=== PATIENT | male | born 1990 | race Caucasian/White ===

== ENCOUNTER 2024-06-20 21:03 | Emergency (ER) | payer MEDICAID ==
[~2024-06-20] VITALS: Ht 180.3 cm; Wt 174.0 kg
[2024-06-20 21:24] VITALS: BP 133/76; PULSE 78; RESP 16; TEMP 98; O2SAT 96
[2024-06-21] MEDS ORDERED: HYDR30CR79 TOP (05:37)
[2024-06-21] MEDS ORDERED: HYDR-3965 PO (05:37)
== END 2024-06-21 03:18 | disposition left against medical advice (07) ==
LOC: ER 21:04
DX: K64.5 Perianal venous thrombosis (principal); K62.89 Other specified diseases of anus and rectum; Z53.21 Procedure and treatment not carried out due to patient leaving prior to being seen by health care provider

== ENCOUNTER 2024-06-21 02:10 | Emergency (ER) | payer OTHER, MEDICAID ==
[~2024-06-21] VITALS: Ht 180.3 cm; Wt 79.0 kg
[2024-06-21] MEDS: acetaminophen 325mg tablet PO ONE (04:20)
[2024-06-21] MEDS: ketorolac trometh 15mg/ml vial 15 MG/ML ML IM ONE (04:21)
[2024-06-21] MEDS: LIDOcaine/PRILOcaine 5gm cream TP ONE (04:21)
[2024-06-21] MEDS ORDERED: HYDR-3965 PO (05:37)
[2024-06-21] MEDS ORDERED: HYDR30CR79 TOP (05:37)
[2024-06-21 06:03] VITALS: BP 123/83; PULSE 60; RESP 18; TEMP 98.6; O2SAT 99
== END 2024-06-21 06:06 | disposition home or self-care (01) ==
LOC: ER 02:11
DX: K64.5 Perianal venous thrombosis (principal); Z88.0 Allergy status to penicillin
CPT/HCPCS: 46083; 96372; 99283; 99284; A6449; J1885

== ENCOUNTER 2024-11-04 02:33 | Emergency (ER) | payer MEDICAID, OTHER ==
[~2024-11-04] VITALS: Ht 177.8 cm; Wt 79.9 kg
[~2024-11-04 02:33] MED LIST: HYDR30CR79 TOP
[2024-11-04 02:46] VITALS: TEMP 97.3
--- NOTE | 2024-11-04 03:57 | Physician Documentation ---
History of Present Illness ~ General Chief Complaint: Medication Request Stated Complaint: VACCINATION Time Seen by MD: 03:55 OK to notify your PCP?: Yes Primary Medical Doctor: [facility] Source: patient, RN/, RN notes reviewed, old records Mode of Arrival: POV Exam Limitations: no limitations History of Present Illness Initial Comments 34-year-old male presents with requests to begin the rabies vaccination series. Patient reports his outdoor cat unexpectedly on 10/23/24 from an unknown illness. A couple of days prior the cat was apparently "crying out a lot." Then the day prior, the cat became "limp" and "paralyzed," and wouldn't drink any w ater. The day the cat , the patient lied down with the cat against his bare chest, trying to keep it warm. At some point the cat's saliva got into his mouth. He is now concerned his cat may have of rabies. Patient called his primary care physician's office who recommend he visit the ER for administration of rabies vaccination series. Patient states he was told the cat had been vaccinated as a kitten, prior to taking it in. Patient denies any symptoms such as headache, fever, neck pain, back pain, nausea, vomiting, or shortness of breath. Medication Reconciliation Allergies: Coded Allergies: ampicillin (Verified Allergy, Unknown, 11/04/24) Uncoded Allergies: PENICILLIN (Allergy, Unknown, 06/20/24) Scheduled Hydrocortisone (Anusol-Hc), 1 APPLIC TOP Q8H Past Medical History Past Medical History: No Pertinent History Past Surgical History: no surgical history Drug Use: none Lives In: Home Review of Systems All Other Systems at this time: Reviewed and Negative ROS As stated above in the HPI, otherwise all systems are reviewed and negative. Physical Exam Physical Exam Vital Signs: RN Vital Signs have been reviewed: Yes, Temperature: 97.3, Source: Temporal, Heart Rate: 61, Respiratory Rate: 18, BP: 117/64, Pulse Oximetry: 98, Weight: 79.900 Oxygen Flow Rate: 0 Pulse Oximetry Reflects: adequate oxygenation Physical Exam General: The patient is well developed, well nourished, nontoxic appearing and is in no acute distress. Skin: University, warm and dry with no rashes. HEENT: Head was normocephalic and atraumatic. Chest: Clear to auscultation bilaterally without wheezes, rales or rhonchi. No accessory muscle use. No dullness to percussion. Heart: Rate regular and rhythmic. S1, S2. No murmurs. Palpation of the chest wall was normal. No rubs or thrills. Extremities: No cyanosis, clubbing or edema. The patient moves all extremities. Pulses were equal and symmetric. Neurologic: Motor and sensation grossly intact. Cranial nerves II-XII grossly intact. A & O x4. Psychologic: Normal mood and affect. No agitation. Progress Progress Note 0410: Patient is very insistent about starting the rabies vaccination series, despite low risks. Will order. Results/Orders Reviewed/noted all lab results: Yes Results/Orders Completed Orders - TALAT DUKE MD Rabies Vaccine (Pcec)/Pf (Rabavert Rabie (11/04/24 04:10) Medications Received in ER Medications (Trade) Dose Ordered Sig/Rosmery Route PRN Reason Start Time Stop Time Status Last Admin Dose Admin (Rabavert Rabies Vaccine kit) 2.5 unit ONCE ONCE IMVAC 11/04/24 04:10 11/04/24 04:14 DC 11/04/24 04:33 2.5 UNIT Vital Signs 11/04/24 11/04/24 02:46 05:00 Temp 97.3 Pulse 61 61 Resp 18 18 B/P (MAP) 117/64 117/64 Pulse Ox 98 98 O2 Flow Rate 0 Re-Evaluation Re-Evaluation : Re-Evaluation: Improved, Unchanged Progress Patient was seen and examined. Patient was given reassurance. Patient was sent over by his primary for rabies vaccine. Patient receive his 1st series of vaccination. There was no open wound so no immunoglobulins were given at this time. Patient is also 10 days post exposure to mucous membranes. Patient was then given discharge instructions and encouraged to return if he has any other concerns. Departure Time of Disposition: 04:41 Disposition: 01 HOME / SELF CARE / HOMELESS Impression: Primary Impression: Need for rabies vaccination Condition: Stable Discharge Instructions: Rabies Additional Instructions: Return to the ER on 11/07, 11/11, and 11/18 for repeat administration of the rabies vaccine. Return sooner for any other concerns. Education Educated: Patient Educated regarding: diagnosis, treatment, need for follow up Signature Scribe Signature: Scribed for Talat Duke MD by Rciardo Sutton . 11/04/24 04:32 Attestation: The note accurately reflects work and decisions made by me.Talat Duke MD 11/04/24 03:57 TALAT DUKE MD November 04, 2024 03:57 RICARDO REED November 04, 2024 04:41
[2024-11-04] MEDS: rabies vaccine (PCEC)/PF 2.5 unit kit IMVAC ONE (04:33)
[2024-11-04 05:00] VITALS: BP 117/64; PULSE 61; RESP 18; O2SAT 98
== END 2024-11-04 05:02 | disposition home or self-care (01) ==
LOC: ER 02:34
DX: Z23 Encounter for immunization (principal); Z88.1 Allergy status to other antibiotic agents; Z79.899 Other long term (current) drug therapy
CPT/HCPCS: 90471; 90675; 99283

== ENCOUNTER 2024-11-08 22:57 | Emergency (ER) | payer MEDICAID ==
[~2024-11-08] VITALS: Ht 180.3 cm; Wt 78.5 kg
[2024-11-08 23:05] VITALS: BP 120/71; PULSE 61; RESP 15; O2SAT 98
--- NOTE | 2024-11-09 00:06 | Physician Documentation ---
History of Present Illness General Chief Complaint: See Chief Complaint Stated Complaint: RABIE SHOT,CAT FLUID EXPOSURE Time Seen by MD: 00:10 Primary Medical Doctor: [facility] History of Present Illness Initial Comments This is a 34-year-old male who presents requesting 2nd shot of rabies prophylaxis, patient reports he was exposed to a cat that had of symptoms that was suspicious for rabies, while animal control has not had a chance to test the cat they did advise the patient that he should receive rabies prophylaxis. Patient reports that he was receive the 1st dose in the series and returns for the 2nd. Patient reports that he feels otherwise well and reports no acute symptoms or concerns. Medication Reconciliation Allergies: Coded Allergies: ampicillin (Verified Allergy, Unknown, 11/04/24) Uncoded Allergies: PENICILLIN (Allergy, Unknown, 06/20/24) Scheduled Hydrocortisone (Anusol-Hc), 1 APPLIC TOP Q8H Past Medical History Past Medical History: No Pertinent History Past Surgical History: no surgical history Drug Use: none Lives In: Home Review of Systems ROS As stated above in the HPI, otherwise all systems are reviewed and negative. Physical Exam Physical Exam Vital Signs: Temperature: 97.8, Source: Temporal, Heart Rate: 61, Respiratory Rate: 15, BP: 120/71, Pulse Oximetry: 98, Weight: 78.500 Physical Exam VITALS: Reviewed and as above. GENERAL: Alert, nontoxic appearing, no apparent distress. RESPIRATORY: No increased work of breathing, no respiratory distress, speaking in full clear sentences Progress Results/Orders Results/Orders Completed Orders - MATHEUS MARTELL Rabies Vaccine (Pcec)/Pf (Rabavert Rabie (11/09/24 00:20) Medications Received in ER Medications (Trade) Dose Ordered Sig/Rosmery Route PRN Reason Start Time Stop Time Status Last Admin Dose Admin (Rabavert Rabies Vaccine kit) 2.5 unit ONCE ONCE IMVAC 11/09/24 00:20 11/09/24 00:21 DC 11/09/24 00:43 2.5 UNIT Vital Signs 11/08/24 11/09/24 23:05 00:51 Temp 97.8 97.8 Pulse 61 Resp 15 B/P (MAP) 120/71 Pulse Ox 98 Medical Decision Making Findings This 34 year male presented requesting 2nd dose of rabies vaccine as part of prophylaxis series after exposure to a cat that had of suspicious symptoms, reviewed previous records indicating patient had received his 1st dose and was scheduled to return yesterday for this 2nd vaccine dose. Patient administered 2nd dose vaccine. Patient reported no other acute symptoms or concerns and is appropriate for outpatient follow up. Patient provided return to care precautions including returning for the next dose of vaccine. Departure Disposition: 01 HOME / SELF CARE / HOMELESS Impression: Primary Impression: Need for rabies vaccination Condition: Improved Discharge Instructions: Rabies, Rabies Vaccine suspension for injection Additional Instructions: Follow up on 11/11 and 11/18 for repeat administration of the rabies vaccine. Please follow up with your primary care provider in the next few days. Please return to the emergency department for any new or worsening concerning symptoms. Referrals: NO PRIMARY CARE PROVIDER (PCP) Education Educated: Patient Educated regarding: diagnosis, treatment, prognosis, need for follow up Signature Scribe Signature: No scribe Attestation: The note accurately reflects work and decisions made by me.LYNDA Wolfe 11/09/24 01:00 MATHEUS MARTELL November 09, 2024 00:06
[2024-11-09] MEDS: rabies vaccine (PCEC)/PF 2.5 unit kit IMVAC ONE (00:43)
[2024-11-09 00:51] VITALS: TEMP 97.8
== END 2024-11-09 00:51 | disposition home or self-care (01) ==
LOC: ER 22:58
DX: Z20.3 Contact with and (suspected) exposure to rabies (principal); Z88.1 Allergy status to other antibiotic agents; Z79.899 Other long term (current) drug therapy
CPT/HCPCS: 90471; 90675; 99281

== ENCOUNTER 2024-11-16 00:59 | Emergency (ER) | payer MEDICAID ==
[~2024-11-16] VITALS: Ht 180.3 cm; Wt 79.5 kg
--- NOTE | 2024-11-16 01:40 | Physician Documentation ---
History of Present Illness ~ General Chief Complaint: General Stated Complaint: EXPOSURE RISK Time Seen by MD: 01:35 [facility] Mode of Arrival: POV, EMS History of Present Illness Initial Comments Patient here for his 3rd and 4th vaccination shot for possible rabies exposure. He would not show up on the recommended date as he states he was traveling for mother's day. No symptoms Medication Reconciliation Allergies: Coded Allergies: ampicillin (Verified Allergy, Unknown, 11/04/24) Uncoded Allergies: PENICILLIN (Allergy, Unknown, 06/20/24) Scheduled Hydrocortisone (Anusol-Hc), 1 APPLIC TOP Q8H Past Medical History Past Medical History: No Pertinent History Past Surgical History: no surgical history Drug Use: none Lives In: Home Review of Systems ROS All review of systems negative except as per HPI Physical Exam Physical Exam Vital Signs: Temperature: 97.7, Source: Temporal, Heart Rate: 87, Respiratory Rate: 15, BP: 121/87, Pulse Oximetry: 100, Weight: 79.520 Oxygen Flow Rate: 0 Physical Exam General: Patient is awake, alert, oriented x4 in no acute distress and well appearing.~ Head: Normocephalic and atraumatic. Eyes: Conjunctival normal. EOMI. PERRL. ENT: Mucous membranes moist. Neck: Supple, trachea is midline. Chest: Clear to auscultation bilaterally without rales, rhonchi, or wheezes. There is no accessory muscle use or retractions. Cardiac: RRR without murmurs, gallops, or rubs. Progress Results/Orders Results/Orders Vital Signs 11/16/24 11/16/24 11/16/24 01:04 01:13 01:16 Temp 97.7 Pulse 70 87 Resp 18 15 15 B/P (MAP) 109/66 121/87 (98) Pulse Ox 100 100 O2 Flow Rate 0 Medical Decision Making Findings Patient given his 3rd and 4th vaccination. He has been told to return for his for with vaccination. Departure Disposition: HOME / SELF CARE / HOMELESS Impression: Primary Impression: Need for rabies vaccination Condition: Stable Discharge Instructions: Rabies Vaccine suspension for injection Additional Instructions: Return on the for your final vaccination Referrals: NO PRIMARY CARE PROVIDER (PCP) Education Educated: Patient Educated regarding: need for follow up Signature Scribe Signature: No scribe Attestation: The note accurately reflects work and decisions made by me.Justin Suarez MD 11/16/24 01:41 JUSTIN SUAREZ MD November 16, 2024 01:40
[2024-11-16] MEDS ORDERED: rabies vaccine (PCEC)/PF 2.5 unit kit IMVAC ONE (01:45)
[2024-11-16 04:11] VITALS: BP 120/78; PULSE 98; RESP 16; TEMP 97.7; O2SAT 100
== END 2024-11-16 04:14 | disposition home or self-care (01) ==
LOC: ER 01:00
DX: Z23 Encounter for immunization (principal); Z88.1 Allergy status to other antibiotic agents; Z79.899 Other long term (current) drug therapy
CPT/HCPCS: 99281

== ENCOUNTER 2024-11-21 16:01 | Emergency (ER) | payer MEDICAID ==
[~2024-11-21] VITALS: Ht 180.3 cm; Wt 78.8 kg
[2024-11-21 16:13] VITALS: BP 114/64; PULSE 65; RESP 18; TEMP 97.9; O2SAT 98
== END 2024-11-21 17:48 | disposition left against medical advice (07) ==
LOC: ER 16:02
DX: Z23 Encounter for immunization (principal); Z88.1 Allergy status to other antibiotic agents; Z88.0 Allergy status to penicillin; Z53.21 Procedure and treatment not carried out due to patient leaving prior to being seen by health care provider

== ENCOUNTER 2024-11-22 14:34 | Emergency (ER) | payer MEDICAID ==
[~2024-11-22] VITALS: Ht 180.3 cm; Wt 79.6 kg
[2024-11-22 14:55] VITALS: BP 133/73; PULSE 63; RESP 18; TEMP 97.6; O2SAT 99
--- NOTE | 2024-11-22 15:12 | Physician Documentation ---
HPI ~ General Chief Complaint: Medication Request Stated Complaint: RABIES VAC Time Seen by MD: 15:03 Primary Medical Doctor: [facility] History of Present Illness HPI Comments This is a 34-year-old male who presents for his final dose of rabies vaccine after a possible rabies exposure. Patient reports he feels otherwise well. Medication Reconciliation Allergies: Coded Allergies: ampicillin (Verified Allergy, Unknown, 11/21/24) Uncoded Allergies: PENICILLIN (Allergy, Unknown, 06/20/24) Scheduled Hydrocortisone (Anusol-Hc), 1 APPLIC TOP Q8H Past Medical History Past Medical History: No Pertinent History Past Surgical History: no surgical history Drug Use: none Lives In: Home Review of Systems ROS As stated above in the HPI, otherwise all systems are reviewed and negative. Physical Exam Physical Exam Vital Signs: Temperature: 97.6, Source: Temporal, Heart Rate: 63, Respiratory Rate: 18, BP: 133/73, Pulse Oximetry: 99, Weight: 79.600 Physical Exam VITALS: Reviewed and as above. GENERAL: Alert, nontoxic appearing, no apparent distress. RESPIRATORY: No increased work of breathing, no respiratory distress, speaking in full clear sentences Progress Results/Orders Results/Orders Completed Orders - MATHEUS MARTELL [employer] Rabies Vaccine (Pcec)/Pf (Rabavert Rabie (11/22/24 15:15) Medications Received in ER Medications (Trade) Dose Ordered Sig/Rosmery Route PRN Reason Start Time Stop Time Status Last Admin Dose Admin (Rabavert Rabies Vaccine kit) 2.5 unit ONCE ONCE IMVAC 11/22/24 15:15 11/22/24 15:16 DC 11/22/24 15:51 2.5 UNIT Vital Signs 11/22/24 14:55 Temp 97.6 Pulse 63 Resp 18 B/P (MAP) 133/73 Pulse Ox 99 Medical Decision Making Findings This otherwise well 34-year-old male presented requesting this 4th and final rabies vaccine and rabies prophylaxis series, patient reported no other symptoms or concerns. Physical exam benign. Patient provided rabies vaccine to complete serious. Differential Dx:Considerations: Include: Psychosocial Departure Disposition: 01 HOME / SELF CARE / HOMELESS Impression: Primary Impression: Need for rabies vaccination Condition: Improved Additional Instructions: Please follow up with your primary care provider in the next few days. Please return to the emergency department for any new or worsening concerning symptoms. Referrals: NO PRIMARY CARE PROVIDER (PCP) Education Educated: Patient Educated regarding: diagnosis, treatment, prognosis, need for follow up Signature Scribe Signature: No scribe Attestation: The note accurately reflects work and decisions made by me.LYNDA Wolfe 11/22/24 22:35 MATHEUS MARTELL November 22, 2024 15:12
[2024-11-22] MEDS: rabies vaccine (PCEC)/PF 2.5 unit kit IMVAC ONE (15:51)
== END 2024-11-22 16:00 | disposition home or self-care (01) ==
LOC: ER 14:35
DX: Z20.3 Contact with and (suspected) exposure to rabies (principal); Z23 Encounter for immunization; Z88.0 Allergy status to penicillin
CPT/HCPCS: 90471; 90675; 99281

== ENCOUNTER 2025-02-21 02:02 | Emergency (ER) | payer MEDICAID ==
[~2025-02-21] VITALS: Ht 185.4 cm; Wt 80.0 kg
--- NOTE | 2025-02-21 03:03 | Physician Documentation ---
History of Present Illness ~ Chief Complaint: Laceration Stated Complaint: LEFT HAND LAC Time Seen by MD: 03:01 Primary Medical Doctor: [facility] Patient presents to the emergency room for evaluation of cut to his left hand that has sustained on some staying glass. He says he came home to feed his mother's cat when he tripped over some glass cutting his hand. Tetanus reported to be up-to-date Tetanus Within 5 Years: No Medication Reconciliation Allergies: Coded Allergies: ampicillin (Verified Allergy, Unknown, 11/21/24) Uncoded Allergies: PENICILLIN (Allergy, Unknown, 06/20/24) Scheduled Hydrocortisone (Anusol-Hc), 1 APPLIC TOP Q8H Past Medical History Past Medical History: No Pertinent History Past Surgical History: no surgical history Drug Use: none Lives In: Home Review of Systems ROS All review of systems negative except as per HPI Physical Exam Vital Signs: Temperature: 98.3, Heart Rate: 78, Respiratory Rate: 16, BP: 117/69, Pulse Oximetry: 97, Weight: 80.000 Oxygen Flow Rate: 0 Physical Exam General: Patient is awake, alert, oriented x4 in no acute distress and well appearing.~ Head: Normocephalic and atraumatic. Eyes: Conjunctival normal. EOMI. PERRL. ENT: Mucous membranes moist. Neck: Supple, trachea is midline. Chest: Clear to auscultation bilaterally without rales, rhonchi, or wheezes. There is no accessory muscle use or retractions. Cardiac: RRR without murmurs, gallops, or rubs. Extremities: Normal strength. Normal range of motion. No deformities or edema. Procedures Procedure Note Laceration repair: Status post informed verbal consent patient was sterilely cleaned and draped. Patient is 2.5 cm full-thickness laceration to the volar aspect of his left thumb anesthetize using 2 cc of 1% lidocaine with epinephrine. After thorough irrigation patient's laceration was repaired using four simple interrupted sutures using 4-0 Ethilon. Patient tolerated procedure well without complication. Total time of procedure 10 minutes Progress Results/Orders Results/Orders Vital Signs 02/21/25 02:05 Temp 98.3 Pulse 78 Resp 16 B/P (MAP) 117/69 Pulse Ox 97 O2 Flow Rate 0 Medical Decision Making Findings Patient presented to the emergency room with laceration in his hand as per HPI. Differentials include but are not limited to foreign body, laceration, tendinous rupture, nerve ligation. Physical exam is reassuring for patient able to oppose his thumb to his pinky. Patient is status post laceration repair. The need to have sutures removed as well as ER precautions regarding symptoms of infection discussed. Departure Disposition: HOME / SELF CARE / HOMELESS Impression: Primary Impression: Laceration Condition: Stable Discharge Instructions: Laceration Care, Adult, [id number] Additional Instructions: Have any health care provider remove sutures in 7-10 days Referrals: NO PRIMARY CARE PROVIDER (PCP) Signature Scribe Signature: No scribe Attestation: The note accurately reflects work and decisions made by me.Justin Suarez MD 02/21/25 03:22 JUSTIN SUAREZ MD Feb 21, 2025 03:03
[2025-02-21 03:38] VITALS: BP 118/68; PULSE 76; RESP 18; TEMP 98.6; O2SAT 99
[2025-02-21] MEDS: bacitracin 15gm ointment TP ONE (03:38)
== END 2025-02-21 03:40 | disposition home or self-care (01) ==
LOC: ER 02:03
DX: S61.412A Laceration without foreign body of left hand, initial encounter (principal); Z88.1 Allergy status to other antibiotic agents; Z79.899 Other long term (current) drug therapy; W25.XXXA Contact with sharp glass, initial encounter; Y93.89 Activity, other specified; Y92.89 Other specified places as the place of occurrence of the external cause; Y99.8 Other external cause status
CPT/HCPCS: 12001; 99282; A6222; A6449